=== PATIENT | female | born 1985 | race Caucasian/White ===

== ENCOUNTER 2024-02-13 11:16 | Emergency (ER) | payer SELFPAY ==
[2024-02-13 11:41] VITALS: BP 138/66; PULSE 82; RESP 17; TEMP 36.6; O2SAT 100
[2024-02-13 12:32] VITALS: BP 126/78; PULSE 76; RESP 14; O2SAT 100
[2024-02-13 12:50] LABS: Basophils Absolute Auto 0.1 K/mm3 (0.0-0.1); Basophils Percent Auto 0.7 % (0.2-1.2); Hematocrit 30.1 % (37.0-47.0); Hemoglobin 7.8 g/dL (12.0-15.0); Immature Granulocyte Absolute 0.04 K/mm3 (0.00-0.031); Immature Granulocyte Percent A 0.3 % (0-0.5); Lymphocytes Absolute Auto 0.65 K/mm3 (0.9-3.2); Lymphocytes Percent Auto 4.8 % (18.3-44.2); Mean Corpuscular HGB Conc 25.9 g/dl (32-36); Mean Corpuscular Hemoglobin 16.1 pg (26-34); Mean Corpuscular Volume 62.3 fl (80-100); Mean Platelet Volume 10.1 fl (7.4-10.4); Monocytes Absolute Auto 0.4 K/mm3 (0.1-0.6); Monocytes Percent Auto 3.2 % (2.6-8.5); Neutrophils Absolute Auto 12.4 K/mm3 (1.3-6.7); Platelet Count Result 450 k/mm3 (150-375); Red Blood Count 4.83 M/mm3 (4.2-5.4); Red Cell Distribution Width 19.9 % (11.5-14.5); White Blood Count 13.6 K/mm3 (4.5-10.0)
[2024-02-13 12:58] LABS: BEDSIDEPREGUCG Negative (Negative)
[2024-02-13 13:01] LABS: Alanine Aminotransferase 14 U/L (6-35); Albumin Level 4.8 g/dL (3.5-5.1); Alkaline Phosphatase 83 U/L (38-126); Anion Gap 10 mmol/L (4-12); Aspartate Amino Transferase 31 U/L (14-36); Bilirubin,Total 0.8 mg/dL (0.2-1.3); Blood Urea Nitrogen 14 mg/dL (7-17); Calcium 8.9 mg/dL (8.4-10.2); Carbon Dioxide 24 mmol/L (22-30); Chloride 103 mmol/L (98-107); Estimated Glomerular Filt Rate > 60; Glucose 117 mg/dL (65-110); Lipase 62 U/L (23-300); Potassium 4.1 mmol/L (3.4-5.0); Sodium 137 mmol/L (137-145)
[2024-02-13 13:07] LABS: Add Urine Microscopic? YES; Appearance Urine Clear (Clear); Bacteria Urine None Seen /hpf; Bilirubin Urine Negative (Negative); Blood Urine 2+ (Negative); Color Urine Yellow (Yellow); Glucose Urine UA Negative (Negative); Ketones Urine Negative (Negative); Leukocyte Esterase Ur Trace LEU/UL (Negative); Nitrate Urine Negative (Negative); Non Pathogenic Casts 0-2; Protein Urine 1+ mg/dL (Negative); Squamous Epithelial Cell Urine Occasional /hpf (Few); Urobilinogen Urine 0.2 mg/dL (<2.0); WBC Urine 0-5 /hpf (0-3); pH Urine 5.5 (5.0-9.0)
[2024-02-13] MEDS: FAMOTIDINE 20 MG/2 ML VIAL IV PUSH (13:07)
[2024-02-13] MEDS: ONDANSETRON INJ 4 MG/2 ML VIAL IV PUSH ×2 (13:07→15:26)
[2024-02-13] MEDS: SODIUM CHLORIDE 0.9% IV 2,000 ML 999 ML IV CONT (13:07)
[2024-02-13 13:27] LABS: Influenza A QL RT-PCR Negative (Negative); Influenza B QL RT-PCR Negative (Negative); RSV RNA, RT-PCR Negative (Negative); SARS-CoV-2 RNA PCR Negative (Negative)
[2024-02-13 13:29] LABS: Hypochromasia 2+; Ovalocytes 1+; Platelet Estimate Increased (Adequate); Poikilocytosis 1+; Polychromasia 1+; Target Cells 1+; Tear Drop Cells 1+
[2024-02-13 13:30] LABS: Anisocytosis 2+; Schistocytes Rare
[2024-02-13 13:52] VITALS: BP 117/65; PULSE 75; RESP 15; O2SAT 100
--- NOTE | 2024-02-13 14:59 | ED.GENADULT ---
HPI - General Adult General Chief complaint: Nausea/Vomiting/Diarrhea Stated complaint: n/v Time Seen by Provider: 02/13/24 12:38 History of Present Illness HPI narrative: This is a 38-year-old female presenting with nausea vomiting diarrhea. She has had symptoms since last night. Several other members of her family have similar symptoms. She denies fevers chills chest pain difficulty breathing. She is having diffuse crampy abdominal pain. No urinary symptoms. Related Data Allergies Allergy/AdvReac Type Severity Reaction Status Date / Time No Known Allergies Allergy Verified 02/13/24 13:06 Exam Narrative: APPEARANCE: No apparent distress. Head: atraumatic. EYES: EOMI, NOSE: Atraumatic NECK: Trachea midline RESPIRATORY: No increased rate of breathing clear to auscultation CARDIOVASCULAR: RRR, ABDOMINAL: Non-distended , soft nontender no guarding rebound MUSCULOSKELETAl: No obvious deformities NEURO: Alert. Moving 4/4 extremities SKIN:: Warm, dry. Normal color PSYCHIATRIC: Normal affect Course Vital Signs Vital signs: Vital Signs Temperature 97.8 F 02/13/24 11:41 Pulse Rate 82 02/13/24 11:41 Respiratory Rate 17 02/13/24 11:41 Blood Pressure 138/66 02/13/24 11:41 Pulse Oximetry 100 02/13/24 11:41 Oxygen Delivery Room Air 02/13/24 11:41 Temperature 97.8 F 02/13/24 11:41 Pulse Rate 75 02/13/24 13:52 Respiratory Rate 15 02/13/24 13:52 Blood Pressure 117/65 02/13/24 13:52 Pulse Oximetry 100 02/13/24 13:52 Oxygen Delivery Room Air 02/13/24 11:41 Medical Decision Making [facility] Narrative Medical decision making narrative: -Course: 30-year-old female presenting with nausea vomiting diarrhea. Given fluid resuscitation. She has stable vital signs and a benign abdominal exam. Patient was able to tolerate p.o. after antiemetics. She will be discharged home with antiemetics. Given return precautions -DDX includes but is not limited to: gastroenteritis, viral syndrome, food poisoning -Independent interpretation of studies: labs and imaging reviewed -Interventions: 2 L normal saline, Pepcid, Zofran -Shared decision making / Disposition: discharged -RX Zofran Vital Signs Vital Signs: Vital Signs Temperature 97.8 F 02/13/24 11:41 Pulse Rate 82 02/13/24 11:41 Respiratory Rate 17 02/13/24 11:41 Blood Pressure 138/66 02/13/24 11:41 Pulse Oximetry 100 02/13/24 11:41 Oxygen Delivery Room Air 02/13/24 11:41 Temperature 97.8 F 02/13/24 11:41 Pulse Rate 75 02/13/24 13:52 Respiratory Rate 15 02/13/24 13:52 Blood Pressure 117/65 02/13/24 13:52 Pulse Oximetry 100 02/13/24 13:52 Oxygen Delivery Room Air 02/13/24 11:41 Lab Data 02/13/24 12:39 02/13/24 12:39 Labs: Lab Results 02/13/24 02/13/24 02/13/24 Range/Units 12:39 12:54 12:56 WBC 13.6 H (4.5-10.0) K/mm3 RBC 4.83 (4.2-5.4) M/mm3 Hgb 7.8 L (12.0-15.0) g/dL Hct 30.1 L (37.0-47.0) % MCV 62.3 L (80-100) fl MCH 16.1 L (26-34) pg MCHC 25.9 L (32-36) g/dl RDW 19.9 H (11.5-14.5) % Plt Count 450 H (150-375) k/mm3 MPV 10.1 (7.4-10.4) fl Immature Gran % (Auto) 0.3 (0-0.5) % Neut % (Auto) 91.0 H (45.5-73.1) % Lymph % (Auto) 4.8 L (18.3-44.2) % [place] % (Auto) 3.2 (2.6-8.5) % Eos % (Auto) 0.0 (0-4.4) % Baso % (Auto) 0.7 (0.2-1.2) % Lymph # (Auto) 0.65 L (0.9-3.2) K/mm3 [place] # (Auto) 0.4 (0.1-0.6) K/mm3 Eos # (Auto) 0.0 (0-0.3) K/mm3 Baso # (Auto) 0.1 (0.0-0.1) K/mm3 Abs Immat Gran (auto) 0.04 H (0.00-0.031) K/mm3 Absolute Neuts (auto) 12.4 H (1.3-6.7) K/mm3 Absolute Nucleated RBC 0.000 (0.0-0.012) K/mm3 Nucleated RBC % 0.0 (0.0-0.2) % Platelet Estimate Increased (Adequate) Polychromasia 1+ Hypochromasia 2+ Poikilocytosis 1+ Anisocytosis 2+ Target Cells 1+ Tear Drop Cells 1+ Ovalocytes 1+ Schistocytes Rare Sodium 137 (137-145) mmol/L Potassium 4.1 (3.4-5.0) mmol/L Chloride 103 (98-107) mmol/L Carbon Dioxide 24 (22-30) mmol/L Anion Gap 10 (4-12) mmol/L BUN 14 (7-17) mg/dL Creatinine 0.50 L (0.7-1.0) mg/dL Estim Creat Clear Calc Not Reportable Estimated GFR > 60 (59 - ) Glucose 117 H (65-110) mg/dL Calcium 8.9 (8.4-10.2) mg/dL Total Bilirubin 0.8 (0.2-1.3) mg/dL AST 31 (14-36) U/L ALT 14 (6-35) U/L Alkaline Phosphatase 83 (38-126) U/L Total Protein 9.0 H (6.3-8.2) g/dL Albumin 4.8 (3.5-5.1) g/dL Lipase 62 (23-300) U/L Urine Color Yellow (Yellow) Urine Appearance Clear (Clear) Urine pH 5.5 (5.0-9.0) Ur Specific [place] 1.020 (1.001-1.035) Urine Protein 1+ H (Negative) mg/dL Urine Glucose (UA) Negative (Negative) mg/dL Urine Ketones Negative (Negative) mg/dL Ur Blood (Man) 2+ H (Negative) Urine Nitrate Negative (Negative) Urine Bilirubin Negative (Negative) Urine Urobilinogen 0.2 (<2.0) mg/dL Leukocyte Esterase Rfl Trace H (Negative) [place]/UL Urine RBC 6-10 H (0-2) /hpf Urine WBC 0-5 (0-3) /hpf Ur Squamous Epith Cells Occasional (Few) /hpf Urine Bacteria None seen /hpf Urine Casts 0-2 POC Urine HCG, Qual Negative (Negative) Influenza A (RT-PCR) Negative (Negative) Influenza B (RT-PCR) Negative (Negative) RSV (RT-PCR) Negative (Negative) SARS-CoV-2 RNA (RT-PCR) Negative (Negative) Discharge Plan Discharge Clinical Impression: Gastroenteritis Patient Disposition: Home, Self-Care Condition: Stable Instructions: Antibiotic Form, Gastroenteritis (ED) Additional Instructions: please use Zofran for nausea. Please drink plenty of fluids. Please follow-up with your primary care physician as needed. If you develop fevers severe abdominal pain or your unable to tolerate water you can return to the ED for re-evaluation. Prescriptions: New ondansetron 4 mg tablet,disintegrating 4 mg PO Q8H PRN (Reason: nausea and vomiting) Qty: 30 0RF Follow-up/Referrals: PHYSICIAN,TELEPHONE MAINTENANCE MECHANIC [Primary Care Provider] -
[2024-02-13 15:13] VITALS: BP 116/68; PULSE 80; RESP 18; O2SAT 100
--- NOTE | 2024-02-13 15:13 | PC.NURSE ---
Pt received water for PO challenge, able to keep water down & reports she feels okay.
--- NOTE | 2024-02-13 15:27 | PC.NURSE ---
Pt c/o increase of nausea despite reports of feeling better after PO challenge, pt requesting one last dose of meds before leaving. made aware. Dr. Keyonna REYNA for 4mg zofran IVP stat. Pt received medication and agreeable to d/c instructions.
== END 2024-02-13 15:42 | disposition home or self-care (01) ==
PROVIDERS: Emergency Provider Emergency Medicine
DX: K52.9 Noninfective gastroenteritis and colitis, unspecified (principal); Z20.822 Contact with and (suspected) exposure to COVID-19
CPT/HCPCS: 36415; 80053; 81001; 81025; 83690; 85025; 87637; 96361; 96374; 96375; 96376; 99284; J2405; J7030